=== PATIENT | female | born 1990 | race Caucasian/White ===

== ENCOUNTER 2020-06-09 19:29 | Emergency (ER) | payer MEDICAID ==
[~2020-06-09] VITALS: Ht 154.9 cm; Wt 72.2 kg
[2020-06-09 19:39] VITALS: BP 146/82
--- NOTE | 2020-06-09 20:23 | PHYS DOC ---
Adult General Chief Complaint Chief Complaint: FOOT INJURY PAIN HPI HPI Patient is a 29-year-old female presents to the emergency department complaining of right foot pain after closing her right foot into a car door jam. Patient states that she had broken this foot previously in November 2019, reporting fractures of her second and third metatarsal midshaft nondisplaced. Patient states she is supposed to wear a cam boot as directed by her orthopedic surgeon. Patient states that she decided today she was feeling better and she put on regular shoes, and closed her foot in the door by accident. Patient fears she has rebroken her right foot. Patient states that she is from [place] and was in town here for a Narcotics Anonymous meeting. Patient states her last narcotic abuse was 2 years ago. Patient states she is currently taking cocci codon and acetaminophen 10/325 medications along with BuSpar, lithium, Cymbalta, Zofran, Xanax, Lasix, and potassium as directed by her pain management physician. Patient reports a partial hysterectomy in November 2019 as well. Patient reports allergies to Lyrica,varenicline, trazodone, pregabalin, mirtazapine, and ott flavored products. Patient denies any other physical complaints or physical concerns. (LATASHA HOLLIDAY APRN) Review of Systems Review of Systems 14 body systems of review of systems have been reviewed. See HPI for pertinent positives and negative responses, otherwise all other systems are negative, nonpertinent or noncontributory. (LATASHA HOLLIDAY APRN) Allergies Allergies Allergies Coded Allergies Type Severity Reaction Last Updated Verified ott flavor Allergy Unknown 06/09/20 Yes mirtazapine Allergy Unknown 06/09/20 Yes pregabalin Allergy Unknown 06/09/20 Yes trazodone Allergy Unknown 06/09/20 Yes varenicline Allergy Unknown 06/09/20 Yes (LATASHA HOLLIDAY APRN) Physical Exam Physical Exam Constitutional: Well developed, well nourished, no acute distress, non-toxic appearance. Patient anxious during physical exam. HENT: Normocephalic, atraumatic, bilateral external ears normal, oropharynx moist, no oral exudates, nose normal. Eyes: PERRLA, EOMI, conjunctiva normal, no discharge. Neck: Normal range of motion, no tenderness, supple, no stridor. Cardiovascular:Heart rate regular rhythm, no murmur Lungs & Thorax: Bilateral breath sounds clear to auscultation Abdomen: Bowel sounds normal, soft, no tenderness, no masses, no pulsatile masses. Skin: Warm, dry, no erythema, no rash. Back: No tenderness to palpation. Extremities: No tenderness, no cyanosis, no clubbing, ROM intact, no edema. Except for right foot, patient complains of pain to palpation at midfoot distal to toes, full range of motion to all toes, distal cap refill less than 2 seconds, 2+ dorsalis pedis/posterior tibial pulse. No swelling appreciated, no crepitus appreciated, skin intact. There is no bruising or ecchymotic areas of the foot appreciated. Neurologic: Alert and oriented X 3, normal motor function, normal sensory function, no focal deficits noted. Psychologic: Affect normal, judgement normal, mood normal. (LATASHA HOLLIDAY APRN) EKG EKG [] (LATASHA HOLLIDAY APRN) Radiology/Procedures Radiology/Procedures PATIENT: GILA ZAVALA ACCOUNT: [id number] : 1990 LOCATION: ER AGE: 29 SEX: F EXAM STATUS: DEP ER ORD. PHYSICIAN: LATASHA HOLLIDAY APRN REASON: injury PROCEDURE: FOOT RIGHT 3V EXAM: PA, oblique and lateral views of the right foot DATE: 06/09/2020 7:46 PM INDICATION: Reason: injury / Spl. Instructions: foot and toes / History: COMPARISON: No Prior FINDINGS: Oblique fractures through the second and third metatarsals, chronic in appearanc e. No acute fracture or dislocation. Mild hallux valgus suspected with trace lateral subluxation of the hallux MTP sesamoids. IMPRESSION: 1. No acute fracture or dislocation. 2. Oblique fractures through the second and third metatarsals, chronic in appe arance. Electronically signed by: Mariusz Palma MD (06/09/2020 10:16 PM) [facility] DICTATED AND SIGNED BY: MARIUSZ PALMA MD DATE: 06/09/202215 CC: LATASHA HOLLIDAY APRN; CAIT LEON MD; PCP,UNKNOWN ~MTH0 0 (LATASHA HOLLIDAY APRN) Heart Score C/O Chest Pain: No Risk Factors: Risk Factors: DM, Current or recent (<one month) smoker, HTN, HLP, family history of CAD, obesity. Risk Scores: Risk Factors: DM, Current or recent (<one month) smoker, HTN, HLP, family history of CAD, obesity. (LATASHA HOLLIDAY APRN) Course & Med Decision Making Course & Med Decision Making Pertinent Labs and Imaging studies reviewed. (See chart for details) 29-year-old female, vital signs reviewed, presents emergency department with concerns of right foot pain after closing it in a car door. Physical examination concerning for possible bony injury of the right foot. An x-ray was ordered. The patient did complain of 10/10 pain, however patient is a narcotic abuser, goes to NA meetings, states she does not want anything for pain as she follows her pain management doctor's recommendations for pain medications. X-ray right foot showed healing old fractures. Patient states she is supposed to wear a Ortho/cam boot directed by her orthopedic surgeon following her right foot fractures healing process. Patient is aware of the fractures that were seen in today's x-ray. Patient was most concerned for refracture or other fractures of her foot. Discussed with patient need to follow her orthopedic surgeon directive of wearing her orthopedic boot device and continue follow-up with ongoing orthopedic surgeon service. Patient gave verbal understanding, states she will go home and put her orthopedic device on and wear it as directed. Patient did reveal she has not been wearing it as often as she should. Reviewed diagnosis of contusion right foot and recommended to patient RICE therapy, ice pack, Rudy wrap, postop shoe today in the emergency department until she is able to get home and put on her orthopedic cam boot. Also discussed with patient strict follow-up with her orthopedic surgeon appointment. Patient was amenable to this plan. Ice pack, Rudy wrap, postop shoe applied by ED nursing staff. Patient gave verbal understanding of discharge home instructions, follow-up with orthopedic appointment this week, PCP follow-up for ongoing aches and pains, return to ER precautions and concerns, RICE therapy, reapplication of her cam boot, patient discharged without incident. (LATASHA HOLLIDAY APRN) Course & Med Decision Making Did not see or evaluate patient. Agree with V[employer]OR RELATIONSHIP MANAGER's work-up and disposition per note. (CAIT LEON MD) Dragon Disclaimer Dragon Disclaimer This electronic medical record was generated, in whole or in part, using a voice recognition dictation system. (LATASHA HOLLIDAY APRN) Departure Departure: Impression: Primary Impression: Contusion of right foot Additional Impression: Fracture of foot with routine healing Disposition: 01 DC HOME SELF CARE/HOMELESS Condition: GOOD Referrals: PCP,UNKNOWN (PCP) GERMANIA PACHECO MD Patient Instructions: Contusion, Elastic Bandage and RICE, Splint Care-Brief Additional Instructions: We have x-ray of your foot, there was no new fractures, please use RICE therapy (rest, ice, compression, elevation), please continue to use your orthopedic boot device as directed by your orthopedic physician. Please see your orthopedic physician soon related to this injury when you return home to [facility], you may use Dr. Pacheco if you require a local healthcare science specialist. Please use your home pain medications as we discussed, return to the emergency department for worsening symptoms or other concerns. Problem Qualifiers Primary Impression: Contusion of right foot Encounter type: initial encounter Qualified Codes: S90.31XA - Contusion of right foot, initial encounter Additional Impression: Fracture of foot with routine healing Fracture type: closed Laterality: right Qualified Codes: S92.901D - Unspecified fracture of right foot, subsequent encounter for fracture with routine healing LATASHA HOLLIDAY APRN Jun 09, 2020 20:22 CAIT LEON MD Jun 10, 2020 18:25
--- NOTE | 2020-06-09 22:19 | RAD ---
EXAM: PA, oblique and lateral views of the right foot DATE: 06/09/2020 7:46 PM INDICATION: Reason: injury / Spl. Instructions: foot and toes / History: COMPARISON: No Prior FINDINGS: Oblique fractures through the second and third metatarsals, chronic in appearance. No acute fracture or dislocation. Mild hallux valgus suspected with trace lateral subluxation of the hallux MTP sesamoi ds. IMPRESSION: 1. No acute fracture or dislocation. 2. Oblique fractures through the second and third metatarsals, chronic in appearance. Electronically signed by: Mariusz Palma MD (06/09/2020 10:16 PM) [facility]
== END 2020-06-09 20:35 | disposition home or self-care (01) ==
LOC: ER 19:29
DX: S92.901D Unspecified fracture of right foot, subsequent encounter for fracture with routine healing (principal); W23.0XXD Caught, crushed, jammed, or pinched between moving objects, subsequent encounter
CPT/HCPCS: 73630; 99283